=== PATIENT | female | born 1945 | race Caucasian/White ===

== ENCOUNTER 2020-10-03 10:43 | Emergency (ER) | payer MEDICARE, MEDICAID, SELFPAY ==
[2020-10-03] VITALS (10 sets, daily range): BP systolic 123–176; BP diastolic 68–99; PULSE 88–109; RESP 17–18; TEMP 36.9–38.1; O2SAT 91–97; BMI 20.5
--- NOTE | ~2020-10-03 | CT_ITS ---
EXAMINATION: CT LUMBAR SPINE WITHOUT CONTRAST CLINICAL INFORMATION: Pain, fall. COMPARISON: None TECHNIQUE: Axial 2 mm thin and reformatted 2 mm thin sagittal and coronal images of lumbar spine were obtained without contrast. This CT examination was performed using dose optimization techniques as appropriate, variously including the following: *Automated exposure control *Adjustment of mA and/or kV according to patient size (this includes techniques or standardized protocols for targeted exams where dose is matched to indication/reason for exam; i.e. extremities or head) *Use of iterative reconstruction technique DLP; 316 mGy-cm FINDINGS: There is normal lumbar lordosis. The vertebral heights, alignment is normal. There is L4-L5 and L5-S1 vertebral fusion with posterior hardware in place. There is loss of L3-L4, L4-L5 and L5-S1 disc levels. The L1-L2 and L2-L3 disc levels are unremarkable except for mild facet joint hypertrophy and arthropathy at this disc levels. The neural foramina are patent bilaterally. At L3-L4 disc level there is loss of disc height with mild posterior spondylosis/bulge complex without spinal canal stenosis. The neural foramina are mildly narrowed secondary to moderate facet joint arthropathy and hypertrophy. At L4-L5 disc level there is bilateral laminectomy with a capacious thecal sac. There is L4-L5 fusion with posterior hardware the new foramina are patent bilaterally. At L5-S1 disc level there is is capacious thecal sac. There is no spinal canal stenosis. The neural foramina are patent bilaterally. CT/CT lumbar spine wo con IMPRESSION: L4-L5 and L5-S1 posterior fusion with hardware in place. There is L4 laminectomy with a capacious thecal sac at L4-L5 disc level Degenerative disc changes L3-L4 disc level without spinal canal stenosis. Mild posterior spondylosis/bulge complex with mild bilateral narrowing of neural foramina at the L3-L4 disc level. No visible acute fracture or lytic process.
--- NOTE | ~2020-10-03 | XR_ITS ---
EXAMINATION: XR CHEST CLINICAL INFORMATION: Rule out pneumonia. COMPARISON: 09/18/14. 08/19/14. TECHNIQUE: Frontal view of the chest was obtained. FINDINGS: There are mild chronic interstitial changes. No focal consolidation or other acute abnormality is seen. The pleural spaces are clear. The heart and mediastinal structures are normal. No acute bony abnormality. Surgical anchors are seen along the right lateral aspect of the lower cervical spine. XR/XR chest 1V IMPRESSION: No acute cardiopulmonary disease. No evidence for pneumonia.
--- NOTE | ~2020-10-03 | CT_ITS ---
EXAMINATION: CT CHEST WITHOUT CONTRAST CLINICAL INFORMATION: Opacity medial segment right middle lobe. COMPARISON: None TECHNIQUE: Multidetector volumetric CT imaging of the chest was done. Axial MIP volume rendering provided. Sagittal and coronal reformatted images were obtained. This CT examination was performed using dose optimization techniques as appropriate, variously including the following: *Automated exposure control *Adjustment of mA and/or kV according to patient size (this includes techniques or standardized protocols for targeted exams where dose is matched to indication/reason for exam; i.e. extremities or head) *Use of iterative reconstruction technique DLP: 168 mGy-cm FINDINGS: QUALITY CONTROL INSPECTOR HEADING: Unremarkable. LUNGS: There is diffuse centrilobular and paraseptal emphysematous changes of both lungs with bilateral apical parenchymal scarring and pleural thickening. There are several pulmonary nodules. A 2 mm pulmonary nodule right lung apex image 87/5, a 4 pulmonary mm nodule right upper lobe image 102/5, a 5 mm pulmonary nodule right upper lobe adjacent to the major fissure with mild tenting of the fissure image 122/5, a 9 mm nodule right upper lobe with surrounding thick stranding and mild tenting of the right superior major fissure axial image 162/5. This nodule is very suspicious. 2 mm nodule right upper lobe lateral segment image 174/5, 3 mm pulmonary nodule right upper lobe image 188/5, 3 mm superior major fissure nodule image 171/5, 3 mm pulmonary nodule left upper lobe image 231/5. There are focal atelectatic changes right middle lobe, lateral and posterior dependent segment right lower lobe. MEDIASTINUM: The thyroid lobes are symmetrical. The central trachea and bronchi are widely patent. The heart size and the great vessels are normal caliber. There are enlarged lymph nodes in the aortic window measuring 1.5 x 1.3 cm axial image 20/3. There are several additional prevascular and precarinal lymph nodes. There is a calcified 1.2 cm subcarinal lymph node. PLEURA: There is no pleural effusion. No pleural mass or thickening. AXILLA: No lymphadenopathy. UPPER ABDOMEN: Visualized liver, pancreas and bilateral adrenal glands are unremarkable. The gallbladder has been surgically removed. There are scattered calcified granulomas in the spleen. OSSEOUS STRUCTURES: There is mild spondylosis dorsal spine. No lytic process. CT/CT chest wo con IMPRESSION: Multiple right upper lobe, right lower lobe pulmonary nodules. The largest pulmonary nodule and more worrisome is in the right upper lobe posterior segment with thick stranding and mild tenting of superior major fissure. Recommend PET/CT exam for further evaluation. Diffuse centrilobular and paraseptal emphysema with atelectatic changes in right middle and lower lobes. Abnormal mediastinal adenopathy.
--- NOTE | ~2020-10-03 | CT_ITS ---
EXAMINATION: CT ABDOMEN AND PELVIS WITH CONTRAST CLINICAL INFORMATION: Left flank pain. COMPARISON: CT chest dated 10/16/2007 TECHNIQUE: Multidetector volumetric images were obtained from the superior aspect of the liver through the pubic symphysis following administration 85 mL of Omnipaque 350 intravenous contrast. Sagittal and coronal reformatted images were obtained on the technologist's workstation. Oral contrast: No This CT examination was performed using dose optimization techniques as appropriate, variously including the following: *Automated exposure control *Adjustment of mA and/or kV according to patient size (this includes techniques or standardized protocols for targeted exams where dose is matched to indication/reason for exam; i.e. extremities or head) *Use of iterative reconstruction technique DLP: 386 mGy-cm FINDINGS: LUNG BASES: Moderate emphysema. There is opacity within the medial segment of the middle lobe along the mediastinal pleura favored representing chronic pleural parenchymal scarring. There is adjacent bronchiectasis within the middle lobe and scattered endobronchial secretions. Pleural parenchymal scarring and subsegmental atelectasis present within the lateral segment of the right lower lobe as well, also with scattered endobronchial secretions. Subsegmental atelectasis within the lingula. Coronary calcifications. LIVER, GALLBLADDER, AND BILIARY TREE: Liver normal in size, contour and morphology. No focal liver lesions. There is mild intrahepatic biliary ductal dilatation. Cholecystectomy. Common bile duct measures up to 1.6 cm in diameter tapering smoothly to the ampulla. PANCREAS: No pancreatic mass or inflammation. SPLEEN: Normal in size. Scattered granulomata. ADRENAL GLANDS: Unremarkable. KIDNEYS AND URETERS: The kidneys are normal in size, shape, and attenuation. There are a few bilateral renal cysts, largest within the lower pole of the right kidney measures 1.4 cm. No hydronephrosis, hydroureter, or calculi seen. No perinephric stranding. BLADDER: Unremarkable. GASTROINTESTINAL TRACT: The small and large bowel are unremarkable. The appendix is unremarkable. ABDOMINAL WALL: No significant hernia is appreciated. LYMPH NODES: Normal. VASCULAR: Aorta is atherosclerotic but normal caliber. Patent vascular structures. PELVIC VISCERA: Uterus and adnexa unremarkable. OSSEOUS STRUCTURES: No acute or suspicious osseous abnormality. Posterior spinal fusion from L4 to S1 decompressive laminectomies at L4-L5. Severe discogenic degenerative disease at L3-L4. CT/CT abdomen pelvis w con IMPRESSION: * No potential etiology for the patient's left flank pain identified. * Cholecystectomy. * Moderate emphysema and chronic pleural parenchymal scarring and bronchiectatic changes within the lower lobes bilaterally. There is a parenchymal opacity within the middle lobe along the mediastinal pleura measuring 2.8 x 2.1 x 1.5 cm. Favor round atelectasis, however recommend nonemergent dedicated CT imaging of the chest for further evaluation.
--- NOTE | 2020-10-03 11:04 | ED_ITS ---
HPI - Back Pain/Injury General Chief Complaint: Fall Stated Complaint: difficulty ambulating Time Seen by Provider: 10/03/20 10:51 Source: patient and EMS Mode of arrival: EMS Limitations: no limitations History of Present Illness HPI Narrative: 75 you female with chronic back pain due to COVID missed 6 months of steroid injections noted worsening L lumbar pain with falls - hit L lower back at that time hit head once but no LOC and no AC therapy, denies b/b incontinence, no saddle anesthesia, no AC therapy MD elicited complaint: back pain and back injury Pertinent past history: prior back pain Onset (ago): month(s) (6) Timing: constant Severity: similar to previous episodes Similar Symptoms Previously: Yes Quality: dull, spasming and throbbing Location: lumbar spine and left lower back Radiation: none Exacerbating factors: movement Relieving factors: none Context: while lifting, turning/twisting and fall Associated symptoms: weakness, fatigue, difficulty walking and chills Treatments prior to arrival: cold therapy and prescription analgesics (tramadol) Work related injury: No Related Data Previous Rx's Medication Instructions Recorded lamotrigine 25 mg tablet 25 mg PO BID 14 Days #28 tab 08/30/20 acetaminophen 325 mg tablet 650 mg PO Q6H PRN 90 Days #360 tab 09/24/20 atorvastatin 40 mg tablet 40 mg PO BEDTIME 90 Days #90 tab 09/24/20 clonazepam 0.5 mg tablet 0.5 mg PO DAILY 30 Days #30 tab 09/24/20 ergocalciferol (vitamin D2) 1,250 1,250 mcg PO QWEEK 90 Days #12 cap 09/24/20 mcg (50,000 unit) capsule ferrous sulfate 325 mg (65 mg 325 mg PO BID 90 Days #180 tab 09/24/20 iron) tablet,delayed release fluticasone 250 mcg-salmeterol 50 1 inh INHALATION BID 30 Days #60 ea 09/24/20 mcg/dose blistr powdr for inhalation fluticasone propionate 50 1 spray INTRANASAL DAILY 30 Days 09/24/20 mcg/actuation nasal #16 g spray,suspension gabapentin 300 mg capsule 300 mg PO BEDTIME 30 Days #30 cap 09/24/20 lamotrigine 100 mg tablet,extended 100 mg PO DAILY 30 Days #30 tab 09/24/20 release 24 hr loperamide 2 mg capsule 2 mg PO Q4H PRN 30 Days #60 cap 09/24/20 loratadine 10 mg tablet 10 mg PO DAILY #30 tab 09/24/20 metoprolol succinate 50 mg 50 mg PO DAILY 30 Days #30 tab 09/24/20 tablet,extended release 24 hr omeprazole magnesium 20 mg 20 mg PO DAILY 30 Days #30 cap 09/24/20 capsule,delayed release ondansetron HCl 4 mg tablet 4 mg PO Q8H 30 Days #20 tab 09/24/20 tiotropium bromide 18 mcg capsule 1 cap INHALATION DAILY 30 Days #30 09/24/20 with inhalation device inh topiramate 100 mg tablet 100 mg PO DAILY 30 Days #30 tab 09/24/20 tramadol 50 mg tablet 50 mg PO BID PRN 30 Days #60 tab 09/24/20 zolpidem 5 mg tablet 5 mg PO BEDTIME PRN 30 Days #30 tab 09/24/20 Allergies Allergy/AdvReac Type Severity Reaction Status Date / Time morphine Allergy Intermediate grogginess Verified 09/24/20 10:37 Review of Systems Review of Systems: Constitutional : No Weight loss, No Fever, pos Chills, ENT/Mouth : No Hearing loss, No Ear Pain, No Nasal Congestion, No Sinus Pain, No Hoarseness, No sore throat, No Rhinorrhea, No Swallowing Difficulty Cardiovascular : No Chest Pain, No SOB Respiratory : No Cough, No Dyspnea Gastrointestinal : No Nausea, No Vomiting, No Diarrhea, No abdominal Pain, No Hematochezia, No Melena Genitourinary : No Dysuria, No Urinary Frequency, No Hematuria, No Urinary Incontinence, Musculoskeletal : positive back pain, no contusions Skin : No Skin Lesions, No rash Neuro : No Weakness, No Numbness, No Paresthesias, no loss of bowel or bladder incontinence, no saddle anesthesia [facility] Past Medical History Attestation statement: The following information was validated with the patient. Medical History (Updated 10/03/20 @ 15:32 by Sera Silva DO) Anemia Anxiety Aortic aneurysm Atherosclerosis of arteries Bipolar disorder COPD (chronic obstructive pulmonary disease) Disc degeneration GERD (gastroesophageal reflux disease) HTN (hypertension) Hyperlipemia IBS (irritable bowel syndrome) Paranoid personality (disorder) Presence of intraocular lens PVD (peripheral vascular disease) Scoliosis Unspecified convulsions Social History Social History Smoking Status: Never smoker Use of substances other than those prescribed or required for medical reasons: No Advance Directives: No Advance Directives Information Provided: Yes Physical Exam Vital Signs: Vital Signs: Last Vital Signs Temp 98.8 F 10/03/20 14:55 Pulse 90 10/03/20 14:55 Resp 18 10/03/20 14:55 BP 123/69 10/03/20 14:55 Pulse Ox 93 10/03/20 14:55 Body Mass Index 20.5 Appearance: Alert. Oriented X3. No acute distress. Anxious Eyes: Pupils equal, round and reactive to light. ENT: Pharynx normal. Neck: Normal inspection. Neck supple. CVS: Normal heart rate and rhythm. Pulses normal. Respiratory: No respiratory distress. Breath sounds normal. Abdomen: Soft and nontender. Back: L lumbar ttp, no rash noted Skin: Skin warm and dry. Normal skin color. Normal skin turgor. Extremities: No lower extremity edema. No calf ttp Neuro: Oriented X 3. No motor deficit. No sensory deficit. SILT inner thigh, L5 5/5 bilaterally 2+ distal DP pulses Course Course Course Narrative: resting comfortably, VS stable, repeat lactic acid stable, no pneumonia, no WBC count, UA micro pending no acute source at this time but no WBC count, low grade temp, CXR, UA negative, no abdominal pain, GCS 15 will attempt ambulation trial unable to ambulate states she cannot walk at this time and wants PT and STR, will place on PRN medications MDM - Back Pain/Injury MDM Narrative Medical decision making narrative: 75 yo female no AC therapy, chronic back pain but now with low grade temp will need labs, lumbar spine, did no AC therapy, no trauma, NV intact, no b/b incontinence, no saddle anesthesia, PO medications, UA, COVID swab, dispo per results and findings, possible infection but pain has been going on for months. doubt head injury GCS 15 Lab Data Result diagrams: 10/03/20 11:48 10/03/20 11:48 Labs: Lab Results 10/03/20 10/03/20 10/03/20 Range/Units 11:48 11:48 11:48 WBC 8.9 (4.8-10.8) X10*3/uL RBC 4.16 L (4.20-5.50) X10*6/uL Hgb 13.5 (12.0-16.0) g/dl Hct 42.5 (37-47) % MCV 102.2 H (80-98) fL MCH 32.5 (27.0-33.0) pg MCHC 31.8 (31.0-35.0) g/dl RDW 15.9 (11.0-16.0) % Plt Count 281 (160-400) X10*3/uL MPV 11.3 (9.4-12.3) fL Immature Gran % (Auto) 0.7 H (0.0-0.4) % Neut % (Auto) 70.7 (45-73) % Lymph % (Auto) 11.4 L (20-40) % Kimball % (Auto) 15.5 H (2-11) % Eos % (Auto) 1.1 (0-4) % Baso % (Auto) 0.6 (0-2) % Lymph # (Auto) 1.0 L (1.2-4.9) X10*3/uL Kimball # (Auto) 1.4 H (0.1-1.2) X10*3/uL Eos # (Auto) 0.1 (0.0-0.4) X10*3/uL Baso # (Auto) 0.1 (0.0-0.2) X10*3/uL Abs Immat Gran (auto) 0.06 H (0.00-0.03) X10*3/uL Absolute Neuts (auto) 6.3 (2.0-8.3) X10*3/uL Absolute Nucleated RBC 0.000 (0.0-0.012) X10*3/uL Nucleated RBC % (auto) 0.0 (0.0-0.2) /100WBC Hold Blue Top SEE NOTE Sodium 143 (135-145) mmol/L Potassium 3.6 (3.3-5.1) mmol/L Chloride 106 (96-108) mmol/L Carbon Dioxide 24 (22-29) mmol/L Anion Gap 17 (12-20) BUN 10 (9-16) mg/dL Creatinine 0.61 (0.5-1.4) mg/dL Estim Creat Clear Calc 59.2 Estimated GFR > 60 Random Glucose 118 H (60-115) mg/dL Lactic Acid (0.5-2.0) mmol/L Lactic Acid Fup @ 2Hr (0.5-2.0) mmol/L Calcium 8.9 (8.4-10.2) mg/dL Magnesium 2.1 (1.6-2.6) mg/dL Urine Color Urine Appearance Urine pH (5.0-8.0) Ur Specific Kenvil (1.005-1.025) Urine Protein (NEG-TRACE) MG/DL Urine Glucose (UA) (NEG) MG/DL Urine Ketones (NEG) MG/DL Urine Blood (NEG) Urine Nitrite (NEG) Ur Leukocyte Esterase (NEG) COVID-19 (NORAH) (Negative) COVID-19 Clin Com 10/03/20 10/03/20 10/03/20 Range/Units 11:48 11:48 14:17 WBC (4.8-10.8) X10*3/uL RBC (4.20-5.50) X10*6/uL Hgb (12.0-16.0) g/dl Hct (37-47) % MCV (80-98) fL MCH (27.0-33.0) pg MCHC (31.0-35.0) g/dl RDW (11.0-16.0) % Plt Count (160-400) X10*3/uL MPV (9.4-12.3) fL Immature Gran % (Auto) (0.0-0.4) % Neut % (Auto) (45-73) % Lymph % (Auto) (20-40) % Kimball % (Auto) (2-11) % Eos % (Auto) (0-4) % Baso % (Auto) (0-2) % Lymph # (Auto) (1.2-4.9) X10*3/uL Kimball # (Auto) (0.1-1.2) X10*3/uL Eos # (Auto) (0.0-0.4) X10*3/uL Baso # (Auto) (0.0-0.2) X10*3/uL Abs Immat Gran (auto) (0.00-0.03) X10*3/uL Absolute Neuts (auto) (2.0-8.3) X10*3/uL Absolute Nucleated RBC (0.0-0.012) X10*3/uL Nucleated RBC % (auto) (0.0-0.2) /100WBC Hold Blue Top Sodium (135-145) mmol/L Potassium (3.3-5.1) mmol/L Chloride (96-108) mmol/L Carbon Dioxide (22-29) mmol/L Anion Gap (12-20) BUN (9-16) mg/dL Creatinine (0.5-1.4) mg/dL Estim Creat Clear Calc Estimated GFR Random Glucose (60-115) mg/dL Lactic Acid 2.3 H* (0.5-2.0) mmol/L Lactic Acid Fup @ 2Hr 0.9 (0.5-2.0) mmol/L Calcium (8.4-10.2) mg/dL Magnesium (1.6-2.6) mg/dL Urine Color Urine Appearance Urine pH (5.0-8.0) Ur Specific Kenvil (1.005-1.025) Urine Protein (NEG-TRACE) MG/DL Urine Glucose (UA) (NEG) MG/DL Urine Ketones (NEG) MG/DL Urine Blood (NEG) Urine Nitrite (NEG) Ur Leukocyte Esterase (NEG) COVID-19 (NORAH) Negative (Negative) COVID-19 Clin Com See Note 10/03/20 Range/Units 14:17 WBC (4.8-10.8) X10*3/uL RBC (4.20-5.50) X10*6/uL Hgb (12.0-16.0) g/dl Hct (37-47) % MCV (80-98) fL MCH (27.0-33.0) pg MCHC (31.0-35.0) g/dl RDW (11.0-16.0) % Plt Count (160-400) X10*3/uL MPV (9.4-12.3) fL Immature Gran % (Auto) (0.0-0.4) % Neut % (Auto) (45-73) % Lymph % (Auto) (20-40) % Kimball % (Auto) (2-11) % Eos % (Auto) (0-4) % Baso % (Auto) (0-2) % Lymph # (Auto) (1.2-4.9) X10*3/uL Kimball # (Auto) (0.1-1.2) X10*3/uL Eos # (Auto) (0.0-0.4) X10*3/uL Baso # (Auto) (0.0-0.2) X10*3/uL Abs Immat Gran (auto) (0.00-0.03) X10*3/uL Absolute Neuts (auto) (2.0-8.3) X10*3/uL Absolute Nucleated RBC (0.0-0.012) X10*3/uL Nucleated RBC % (auto) (0.0-0.2) /100WBC Hold Blue Top Sodium (135-145) mmol/L Potassium (3.3-5.1) mmol/L Chloride (96-108) mmol/L Carbon Dioxide (22-29) mmol/L Anion Gap (12-20) BUN (9-16) mg/dL Creatinine (0.5-1.4) mg/dL Estim Creat Clear Calc Estimated GFR Random Glucose (60-115) mg/dL Lactic Acid (0.5-2.0) mmol/L Lactic Acid Fup @ 2Hr (0.5-2.0) mmol/L Calcium (8.4-10.2) mg/dL Magnesium (1.6-2.6) mg/dL Urine Color RISSA Urine Appearance CLEAR Urine pH 5.0 (5.0-8.0) Ur Specific Kenvil >= 1.030 H (1.005-1.025) Urine Protein NEG (NEG-TRACE) MG/DL Urine Glucose (UA) NEG (NEG) MG/DL Urine Ketones 5 (NEG) MG/DL Urine Blood NEG (NEG) Urine Nitrite NEG (NEG) Ur Leukocyte Esterase NEG (NEG) COVID-19 (NORAH) (Negative) COVID-19 Clin Com Discharge Plan Discharge Clinical Impression: Acidosis, lactic, Acute lumbar back pain Prescriptions: No Action lamotrigine 25 mg tablet 25 mg PO BID 14 Days Qty: 28 RF: 0 acetaminophen 325 mg tablet 650 mg PO Q6H PRN (Reason: fever or pain) 90 Days Qty: 360 RF: 2 atorvastatin 40 mg tablet 40 mg PO BEDTIME 90 Days Qty: 90 RF: 2 ergocalciferol (vitamin D2) [Vitamin D2] 1,250 mcg (50,000 unit) capsule 1,250 mcg PO QWEEK 90 Days Qty: 12 RF: 1 ferrous sulfate 325 mg (65 mg iron) tablet,delayed release (DR/EC) 325 mg PO BID 90 Days Qty: 180 RF: 2 fluticasone propion-salmeterol [Advair Diskus] 250-50 mcg/dose blister with device 1 inh inhalation BID 30 Days Qty: 60 RF: 3 fluticasone propionate 50 mcg/actuation spray,suspension 1 spray intranasal DAILY 30 Days Qty: 16 RF: 2 gabapentin 300 mg capsule 300 mg PO BEDTIME 30 Days Qty: 30 RF: 3 lamotrigine 100 mg tablet extended release 24hr 100 mg PO DAILY 30 Days Qty: 30 RF: 1 loperamide 2 mg capsule 2 mg PO Q4H PRN (Reason: loose stool) 30 Days Qty: 60 RF: 1 loratadine 10 mg tablet 10 mg PO DAILY Qty: 30 RF: 0 metoprolol succinate 50 mg tablet extended release 24 hr 50 mg PO DAILY 30 Days Qty: 30 RF: 1 omeprazole magnesium 20 mg capsule,delayed release(DR/EC) 20 mg PO DAILY 30 Days Qty: 30 RF: 1 ondansetron HCl 4 mg tablet 4 mg PO Q8H 30 Days Qty: 20 RF: 1 Spiriva with HandiHaler 18 mcg capsule, w/inhalation device 1 cap inhalation DAILY 30 Days Qty: 30 RF: 1 topiramate 100 mg tablet 100 mg PO DAILY 30 Days Qty: 30 RF: 1 tramadol 50 mg tablet 50 mg PO BID PRN (Reason: pain) 30 Days Qty: 60 RF: 0 zolpidem 5 mg tablet 5 mg PO BEDTIME PRN (Reason: insomnia) 30 Days Qty: 30 RF: 0 clonazepam 0.5 mg tablet 0.5 mg PO DAILY 30 Days Qty: 30 RF: 0
[2020-10-03 11:56] LABS: MANUAL DIFF FLAG NO
[2020-10-03 11:57] LABS: Basophils Absolute Auto 0.1 X10*3/uL (0.0-0.2); Basophils Percent Auto 0.6 % (0-2); Eosinophils Absolute Auto 0.1 X10*3/uL (0.0-0.4); Eosinophils Percent Auto 1.1 % (0-4); Hematocrit 42.5 % (37-47); Hemoglobin 13.5 g/dl (12.0-16.0); Imm Gran Abs Auto 0.06 X10*3/uL (0.00-0.03); Imm Gran Pct Auto 0.7 % (0.0-0.4); Lymphocytes Percent Auto 11.4 % (20-40); Mean Corpuscular HGB Conc 31.8 g/dl (31.0-35.0); Mean Corpuscular Hemoglobin 32.5 pg (27.0-33.0); Mean Corpuscular Volume 102.2 fL (80-98); Mean Platelet Volume 11.3 fL (9.4-12.3); Monocytes Absolute Auto 1.4 X10*3/uL (0.1-1.2); Monocytes Percent Auto 15.5 % (2-11); Neutrophils Absolute Auto 6.3 X10*3/uL (2.0-8.3); Neutrophils Percent Auto 70.7 % (45-73); Platelet Count 281 X10*3/uL (160-400); Red Blood Count 4.16 X10*6/uL (4.20-5.50); Red Cell Distribution Width 15.9 % (11.0-16.0); White Blood Count 8.9 X10*3/uL (4.8-10.8)
[2020-10-03 12:13] LABS: COVID-19 Test Negative (Negative)
[2020-10-03] MEDS: Acetaminophen 325 MG TABLET 650 MG PO (12:14)
[2020-10-03] MEDS: diazePAM 5 MG TABLET PO (12:14)
[2020-10-03] MEDS: Lidocaine 4 % Patch ADH..PATCH 2 PATCH TRANSDERMA (12:15)
[2020-10-03 12:39] LABS: Anion Gap 17 (12-20); Blood Urea Nitrogen 10 mg/dL (9-16); Calcium 8.9 mg/dL (8.4-10.2); Carbon Dioxide 24 mmol/L (22-29); Chloride 106 mmol/L (96-108); Creatinine Clr Calc Pharmacy 59.2; Estimated Glomerular Filt Rate > 60; Glucose Random 118 mg/dL (60-115); Magnesium 2.1 mg/dL (1.6-2.6); Potassium 3.6 mmol/L (3.3-5.1); Sodium 143 mmol/L (135-145)
[2020-10-03 12:40] LABS: Lactic Acid 2.3 mmol/L (0.5-2.0)
[2020-10-03] MEDS: cefTRIAXone sodium 1 GM in 0.9 % Sodium Chloride 50 ML IV (13:08)
[2020-10-03] MEDS: 0.9 % Sodium Chloride 1,000 ML 999 ML IVCONT (13:08)
[2020-10-03 13:53] LABS: Reflex Lactate? Lactic Acid Added
[2020-10-03 14:33] LABS: Glucose Urine UA NEG (NEG); Leukocyte Esterase Urine NEG (NEG); Nitrite Urine NEG (NEG); Specific Gravity - Urine >= 1.030 (1.005-1.025); Urine Blood NEG (NEG); Urine Ketones 5 MG/DL (NEG); Urine Protein NEG (NEG-TRACE)
[2020-10-03 14:43] LABS: Appearance Urine CLEAR; Color Urine AMBER
[2020-10-03 14:47] LABS: ~Lactic Acid-LAB USE ONLY 0.9 mmol/L (0.5-2.0)
[2020-10-03] MEDS: iohexoL 350 MG/ML 100 ML INFUS..BTL IV (17:01)
[2020-10-03] MEDS: oxyCODONE HCl Immed Release 5 MG TABLET PO (17:24)
[2020-10-03] MEDS: lamoTRIgine 25 MG TABLET PO (22:54)
[2020-10-03] MEDS: Zolpidem Tartrate 5 MG TABLET PO (22:54)
[2020-10-03] MEDS: traMADoL HCL 50 MG TABLET PO (22:54)
[2020-10-04] VITALS (7 sets, daily range): BP systolic 104–175; BP diastolic 60–101; PULSE 85–110; RESP 15–20; TEMP 36.8–37.2; O2SAT 92–97
--- NOTE | 2020-10-04 04:09 | PC.NURSE ---
Pt voided on bedpan.Has occ tim non prod cough.States she has diff breathing,Sats,92% on room air,Lungs coarse.O2 applied at 2L,SATS 97%.Repositioned with HOB elevated.Pt states she feels much better.Will cont to monitor.Awaiting case management consult.
[2020-10-04] MEDS: oxyCODONE HCl Immed Release 5 MG TABLET PO (05:39)
--- NOTE | 2020-10-04 05:57 | PC.NURSE ---
INCONT OF STOOL,CARE PROVIDED.MED WITH OXY IR 5MG PO FOR BACK PAIN.PT ALSO C/O NAUSEA,STATES I'M SICK TO MY STOMACHE .MED WITH ZOFRAN 4MGSL.CONTINUES WITH OCC MERLIN NON PROD COUGH.TEMP 98.5.,SAT 97% ON O2 2L.CONT TO MONITOR.
--- NOTE | 2020-10-04 08:48 | PC.NURSE ---
PT IN TO SEE PATIENT
[2020-10-04] MEDS: lamoTRIgine 25 MG TABLET PO ×2 (09:26→21:59)
[2020-10-04] MEDS: clonazePAM 0.5 MG TABLET PO (09:26)
--- NOTE | 2020-10-04 09:32 | PC.NURSE ---
Patient awake and alert. Skin PWD, resp even and non labored. Speaking in full, clear sentences. Medicated w/ morning meds as ordered. Patient worked with physical therapy and is now sitting up in recliner chair. Waiting to hear dispo from case management.
[2020-10-04] MEDS: Fluticasone/Vilanterol 100/25 BLST.W.DEV 1 PUFF INHALE (10:46)
--- NOTE | 2020-10-04 14:37 | MHC.CM.ED ---
Received case management consult overnight. Patient came to the ER due to difficulty ambulating. Work up essentially negative. Physically therapy eval completed. Short term rehab is recommended. Patient has a guardian from [place]. Her name is Sofy Smart. She can be reached via telephone at [phone]. Per Sofy, patient moved to [place] in 2015 to live with her daughter. Patient and her daughter have never had a great relationship. Patient has a long standing history of bipolar and anxiety. After moving to [place], patient required a 1 week inpatient psych stay for medication stabilization. After that patient was discharged to [facility]. Patient was discharged from [facility] to her friend's home in [place] in May 2019. Sofy has remained patient's guardian because the presiding judge in [place] does not feel comfortable signing off on patient's case until a safe terminal press operator discharge plan can be established. Sofy is in the process of finding an Assisted living facility for the patient. Sofy verbalizes understanding that short term rehab will be necessay. A list of facilities provided to Sofy from [facility] via [facility]. Sofy will provide 2 choices. Patient will remain in ER until a safe discharge plan can be made. Continue to monitor for d/c needs.
[2020-10-04] MEDS: diazePAM 2 MG TABLET PO (14:49)
--- NOTE | 2020-10-04 14:54 | PC.NURSE ---
Patient awake and alert. Skin PWD, resp even and non labored. speaking in full, clear sentences. Patient medicated with valium as ordered for muscle spasms, c/o back and arm pain.
--- NOTE | 2020-10-04 16:24 | MHC.CM.ED ---
Sofy's facility choices are: 1)[facility] 2) [facility]. Referrals made via [employer]. Continue to monitor for d/c needs.
[2020-10-05] VITALS: BP 101/54; PULSE 88; RESP 15; O2SAT 98
[2020-10-05 06:00] VITALS: BP 142/68; PULSE 105; RESP 15; O2SAT 94
[2020-10-05] MEDS: clonazePAM 0.5 MG TABLET PO (08:00)
[2020-10-05] MEDS: lamoTRIgine 25 MG TABLET PO ×2 (08:00→22:53)
[2020-10-05] MEDS: Fluticasone/Vilanterol 100/25 BLST.W.DEV 1 PUFF INHALE (08:00)
--- NOTE | 2020-10-05 10:00 | PC.NURSE ---
Addendum entered by Terrance Franks 10/05/20 10:39: Helped patient ambulate from chair to bedside commode for bowel movement. no sign of distress at this time. will continue to monitor. Original Note: Pt sitting in chair in room
[2020-10-05] MEDS: oxyCODONE HCl Immed Release 5 MG TABLET PO (10:03)
[2020-10-05] MEDS: diazePAM 2 MG TABLET PO ×2 (10:03→19:46)
--- NOTE | 2020-10-05 10:09 | MHC.CM.ED ---
[facility] is able to offer a bed. They are emailing consent forms to the guardian for her to sign. hipolito Goetz aware. [facility] put on hold for transfer. Med [facility] with chart. Patient, Terrell Goetz RN and Radha HUTTON aware. Continue to monitor for d/c needs.
[2020-10-05 10:33] VITALS: BP 139/68; PULSE 100; RESP 18; O2SAT 95
[2020-10-05] MEDS: Loperamide HCl 2 MG CAPSULE PO (12:08)
--- NOTE | 2020-10-05 17:21 | MHC.CM.PN ---
[facility]erto [facility] has still not received consents from the guardian. Pt to remain in ED tonight. Expect d/c tomorrow
[2020-10-05 18:00] VITALS: RESP 18
[2020-10-05] MEDS: Zolpidem Tartrate 5 MG TABLET PO (22:57)
[2020-10-06] VITALS: RESP 17
--- NOTE | 2020-10-06 06:59 | PC.NURSE ---
report taken from [facility] rn pt here for fall, has remained in emergency room as case mgmt pt. pt appears to be sleeping in hospital bed att, rr even/unlabored. pt has nasal cannula on, per previous shift rn pt will intermittently take oxygen off and desats. [facility]ctm for dc needs.
[2020-10-06] MEDS: Fluticasone/Vilanterol 100/25 BLST.W.DEV 1 PUFF INHALE (07:56)
[2020-10-06] MEDS: lamoTRIgine 25 MG TABLET PO (08:42)
[2020-10-06] MEDS: clonazePAM 0.5 MG TABLET PO (08:42)
--- NOTE | 2020-10-06 09:41 | MHC.CM.ED ---
Patient remains in Er. Heribertonew underwoodarmandoharry Pablo received the sign consent forms from hipolito Goetz. Patient can leave at 10am. [facility] booked. Med [facility] in chart. Patient, guardian Elizabeth Goetz and Larissa MCGEE aware. Continue to monitor for d/c needs.
--- NOTE | 2020-10-06 09:50 | PC.NURSE ---
Report given to Zo sanders
== END 2020-10-06 10:00 | disposition skilled nursing facility (03) ==
PROVIDERS: Emergency Provider Emergency Medicine; PCP Family Medicine
DX: E87.2 Acidosis (principal); M54.5 Low back pain; M54.6 Pain in thoracic spine; R26.81 Unsteadiness on feet; R10.9 Unspecified abdominal pain; R50.9 Fever, unspecified; Z20.822 Contact with and (suspected) exposure to COVID-19; Z86.16 Personal history of COVID-19; Z79.899 Other long term (current) drug therapy
CPT/HCPCS: 36415; 51702; 71045; 71250; 72131; 74177; 80048; 81003; 83605; 83735; 85025; 87040; 87635; 96361; 96365; 97161; 99285; J0696; Q9967